=== PATIENT | female | born 1965 | race Caucasian/White ===

== ENCOUNTER → 2017-01-23 | Outpatient (CLI) | payer OTHER ==
[~2017-01-23] MED LIST: B COTAB24 PO; CALCTAB5 PO; CYAN500T13 PO; MULTTAB58 PO
--- NOTE | 2017-01-23 14:44 | DIAGNOSTIC IMAGING REPORT ---
CHEST 2 VIEWS ROUTINE CLINICAL HISTORY: Z01.812 PRE-OP preoperative evaluation COMPARISON STUDY: 11/25/2013 FINDINGS: The bones soft tissues and hemidiaphragms are normal. The cardiomediastinal silhouette is normal. The lungs are clear. The pulmonary vasculature is normal. IMPRESSION: Negative chest. The above report was generated using voice recognition software. It may contain grammatical, syntax or spelling errors. Electronically signed by: Yonatan Trotter M.D. 01/23/2017 2:43 PM Dictated Date/Time: 01/23/2017 2:42 PM
[2017-01-23 15:11] LABS: URINE APPEARANCE CLEAR (CLEAR); URINE BILIRUBIN NEG (NEG); URINE COLOR DK YELLOW; URINE NITRITE NEG (NEG); URINE PH 5.5 (4.5-7.5); URINE SPECIFIC GRAVITY 1.024 (1.000-1.030); UROBILINOGEN NEG (NEG)
[2017-01-23 15:12] LABS: MANUAL MICROSCOPIC REQUIRED? NO; REVIEW REQ? NO
[2017-01-23 15:13] LABS: BASO % 0.5 %; BASO ABS # 0.03 K/uL (0-0.2); EOS % 1.4 %; HEMATOCRIT 38.7 % (37-47); IG% 0.2 %; LYMPH % 35.8 %; LYMPH ABS # 2.24 K/uL (1.2-3.4); MEAN CELL VOLUME 90.8 fL (80-100); MEAN PLATELET VOLUME 9.2 fL (7.4-10.4); MONO % 7.5 %; NEUT % 54.6 %; PLATELET COUNT 271 K/uL (130-400); RED BLOOD COUNT 4.26 M/uL (4.2-5.4); WHITE BLOOD COUNT 6.26 K/uL (4.8-10.8)
[2017-01-23 15:23] LABS: COMPLETE YES; MEAN CORPUSCULAR HGB CONC 34.1 g/dl (32-36)
[2017-01-23 15:29] LABS: BLOOD UREA NITROGEN 19 mg/dl (7-18); CALCIUM 9.7 mg/dl (8.5-10.1); CARBON DIOXIDE 29 mmol/L (21-32); CHLORIDE 104 mmol/L (98-107); CREATININE 0.96 mg/dl (0.60-1.20); GLUCOSE 89 mg/dl (70-99); POTASSIUM 3.7 mmol/L (3.5-5.1); SODIUM 137 mmol/L (136-145)
== END | disposition home or self-care (01) ==
LOC: C.CPL 12:52
PROVIDERS: ATTEND Physician Assistant
DX: Z01.812 Encounter for preprocedural laboratory examination (principal); R94.31 Abnormal electrocardiogram [ECG] [EKG]

== ENCOUNTER 2022-12-23 06:08 | Inpatient (IN) ==
--- NOTE | 2022-12-07 10:48 | PAT Medication Instructions ---
Medication Instructions Date of Service December 07, 2022 Home Medications diclofenac sodium 75 mg tablet,delayed release 75 mg PO BID gabapentin 300 mg capsule 300 mg PO TID vitamin B complex 1 tab PO QAM ASK your surgeon for instructions diclofenac sodium 75 mg tablet,delayed release 75 mg PO BID DO NOT take the morning of surgery vitamin B complex 1 tab PO QAM Take morning of surgery With a small sip of water, OTHERWISE NOTHING TO EAT OR DRINK AFTER MIDNIGHT: gabapentin 300 mg capsule 300 mg PO TID Take evening before surgery gabapentin 300 mg capsule 300 mg PO TID Other Notes If you have any questions please call us at [phone] or [phone] or [phone] or [phone]
--- NOTE | 2022-12-12 11:35 | Anesthesiology Consultation ---
Date of Service December 12, 2022 Assessment & Plan (1) Encounter for pre-operative examination: Infectious disease screening: Per assessment on 12/12/22: No known infectious disease contacts or current infectious disease symptoms. Patient was Covid positive 11/16/22 (tested a [employer]-- employee). Mild cold symptoms at time > resolved. Pt can proceed as scheduled without additional preop Covid testing or additional Covid contact precautions per protocol. Chart Review Chart Review: Acceptable Risk for Surgery and Patient seen in Pre Admission Testing Teaching & Discussion Pre-Anesthesia Teaching/Discussion Notes: Instructed NPO after midnight before surgery,except medications with 15 cc of water. Medication instructions provided according to the PAT guidelines. History Surgery Operation Date: 12/23/22 10:05 Proposed Procedures p L3-L5 Revision Decompression and Fusion, Spinal Cord Monitoring - Smooth Zuluaga DO Height/Weight Height: 5 ft 6 in Weight: 57.3 kg Allergies Allergy/AdvReac Type Severity Reaction Status Date / Time Penicillins Allergy Unknown Throat Verified 12/12/22 11:31 swelling wheat Allergy Unknown GI upset Verified 12/12/22 11:31 Medications Home Medications Medication Instructions Recorded Confirmed Last Taken diclofenac sodium 75 mg 75 mg PO BID 12/05/22 12/05/22 Unknown tablet,delayed release gabapentin 300 mg capsule 300 mg PO TID 12/05/22 12/05/22 Unknown vitamin B complex 1 tab PO QAM 12/05/22 12/05/22 Unknown Past Medical History Medical History Arthritis History of COVID-19 11/16/22 (tested at [employer]- employee)- mild cold symptoms > all resolved Spinal stenosis Exercise / Class Metabolic Activity II 4-5 Yardwork/Stairs/Walk up hill (one FS (no CP, no SOB)) Past Surgical History Surgical History History of lumbar laminectomy 2017 History of tooth extraction Hx of fusion of cervical spine 2012 Past Anesthesia History No Hx of Anesthesia Complications and No Family Hx of Anesthesia Complications History of PONV No Hx of PONV and No Hx of Motion Sickness Social History Smoking Status: Former smoker Do You Dip or Chew Tobacco: No Smoking End Date: Quit 15 years ago Hx Alcohol Use: Yes Alcohol type: wine alcohol intake frequency: 0-2 drinks per day (2 drinks/day) Hx Substance Use: No substance use type: does not use Review of Systems Patient denies chest pain, shortness of breath, dyspnea on exertion, fever, chills, cough, wheezing, palpitations. Physical Exam Vital Signs VITALS BP 145/85 P 76 TEMP 98.1 SP02 98%RA RESP 16 PHYSICAL Decreased cervical extension range of motion. Full TMJ range of motion. TMD 3 finger breaths Mallampati Score 1 Dentition: intact Lungs: clear throughout to auscultation Cardiac: regular rate and rhythm, no murmurs noted Spine: normal Carotid arteries: negative bruit Extremities: no LE edema Lab Results Anesthesia Preop Results Results Anesthesia Widget: WBC 6.97 K/ul (4.8-10.8) 12/12/22 Hgb 11.7 g/dl (12.0-16.0) L 12/12/22 Hct 35.8 % (37.0-47.0) L 12/12/22 Plt 397 K/uL (130-400) 12/12/22 Na 140 mmol/L (136-145) 12/12/22 K 4.0 mmol/L (3.5-5.1) 12/12/22 Cl 104 mmol/L (98-107) 12/12/22 CO2 28 mmol/L (21-32) 12/12/22 BUN 26 mg/dl (6-23) H 12/12/22 Creat 0.77 mg/dl (0.6-1.2) 12/12/22 Glucose Level 95 mg/dl (70-99(Fasting)) 12/12/22 PT 10.7 Seconds (9.0-12.0) 12/12/22 PTT 26.8 Seconds (21.0-31.0) 12/12/22 INR 1.0 (0.9-1.1) 12/12/22 Urine Color Dark Yellow 12/12/22 Urine Appearance Clear (Clear) 12/12/22 Urine pH 6.0 (4.5-7.5) 12/12/22 Urine Specific [place] 1.027 (1.000-1.030) 12/12/22 Urine Protein Negative (Negative) 12/12/22 Urine Glucose (UA) Negative (Negative) 12/12/22 Urine Ketones Trace (Negative) H 12/12/22 Urine Blood Negative (Negative) 12/12/22 Urine Nitrite Negative (Negative) 12/12/22 Urine Bilirubin Negative (Negative) 12/12/22 Urine Urobilinogen Negative (Negative) 12/12/22 Urine Leukocyte Esterase 1+ (Negative) H 12/12/22 Urine WBC (Auto) 1-5 /hpf (0-5) 12/12/22 Urine RBC (Auto) 0-4 /hpf (0-4) 12/12/22 Urine Hyaline Casts (Auto) 1-5 /lpf (0-5) 12/12/22 Urine Epithelial Cells (Auto) 10-20 /lpf (0-5) H 12/12/22 Urine Bacteria (Auto) Negative (Negative) 12/12/22 Blood Type A Positive 12/12/22 Antibody Screen NEGATIVE 12/12/22 Testing Electrocardiogram Date: 12/12/22 NSR at 70bpm. NS STA. Chest X-Ray Date: 12/12/22 FINDINGS: Cardiomediastinal and hilar silhouettes are within normal limits. Partially imaged cervical spinal fusion hardware. No pneumothorax, pleural effusion, airspace consolidation or pulmonary edema. Bones appear grossly intact. IMPRESSION: No acute process.
[~2022-12-23 06:08] MED LIST changes: +ACETAMINOPHEN 500 MG TAB PO SCH; -B COTAB24 PO; -CALCTAB5 PO; +CLINDAMYCIN/D5W 900 MG/50 ML BAG IV SCH; -CYAN500T13 PO; +CeleBREX 200 MG CAP PO SCH; +GABAPENTIN 600 MG DOSE PO SCH; +LR 15ML/HR IV SCH; +LR 60ML/HR IV SCH; -MULTTAB58 PO
[2022-12-23] MEDS ORDERED: ROCURONIUM BROMIDE 10 MG/ML 5 ML VIAL IV ONE ×2 (06:51→08:14)
[2022-12-23] MEDS ORDERED: PROPOFOL IV EMULSION 10 MG/ML 20 ML VIAL IV ONE (06:51)
[2022-12-23] MEDS ORDERED: ONDANSETRON INJ 2 MG/ML 2 ML VIAL ONE (06:51)
[2022-12-23] MEDS ORDERED: GLYCOPYRROLATE 0.2 MG/ML VIAL ONE (06:51)
[2022-12-23] MEDS ORDERED: HYDROmorphone INJ 2 MG/ML SYR/VIAL ONE (06:51)
[2022-12-23] MEDS ORDERED: LIDOCAINE 2% 2 ML VIAL/AMP(20MG/ML) INFIL ONE (06:51)
[2022-12-23] MEDS ORDERED: MIDAZOLAM HCL 1 MG/ML 2ML VIAL ONE (06:51)
[2022-12-23] MEDS ORDERED: DEXAMETHASONE SOD INJ 4 MG/ML VIAL ONE (06:51)
[2022-12-23] MEDS ORDERED: NEOSTIGMINE METHYLSULFATE 1 MG/ML 10ML VIAL ONE (06:51)
[2022-12-23] MEDS ORDERED: ePHEDrine sulfate 50 MG/ML AMP IV PRN (07:09)
[2022-12-23] MEDS ORDERED: PROMETHAZINE HCL 6.25 MG in SODIUM CHLORIDE 0.9% 50 ML IV PRN (07:09)
[2022-12-23] MEDS ORDERED: ONDANSETRON INJ 2 MG/ML 2 ML VIAL IV PRN ×2 (07:09→12:06)
[2022-12-23] MEDS ORDERED: ATROPINE SULFATE 0.1 MG/ML 10ML SYR IV PRN (07:09)
--- NOTE | 2022-12-23 07:39 | History & Physical Bridge Note ---
Date of Service December 23, 2022 History & Physical Bridge Note I have examined the patient, reviewed the History & Physical and in the interval since the performance of the History & Physical I have noted the following changes of clinical significance: no changes noted
--- NOTE | 2022-12-23 07:40 | History & Physical Report ---
Date of Service December 23, 2022 Assessment & Plan (1) Neurogenic claudication due to lumbar spinal stenosis: Plan: L3-L5 revision decompression and fusion History of Present Illness Chief Complaint: Back and leg pain Primary Care Provider: KLEBER Baez This is a subsequent course of nonoperative care she is here for surgical invention. Allergies Allergy/AdvReac Type Severity Reaction Status Date / Time Penicillins Allergy Unknown Throat Verified 12/23/22 06:27 swelling wheat Allergy Unknown GI upset Verified 12/23/22 06:27 Home Medications Medication Instructions Recorded Confirmed Type diclofenac sodium 75 mg 75 mg PO BID 12/05/22 12/23/22 History tablet,delayed release gabapentin 300 mg capsule 300 mg PO TID 12/05/22 12/23/22 History vitamin B complex 1 tab PO QAM 12/05/22 12/23/22 History Past Med/Surg History Medical History Arthritis History of COVID-19 11/16/22 (tested at [facility]- employee)- mild cold symptoms > all resolved Spinal stenosis Surgical History History of lumbar laminectomy 2017 History of tooth extraction Hx of fusion of cervical spine 2013 Social History Smoking Status: Former smoker Smoking End Date: Quit 15 years ago; Second Hand Exposure: No; Do You Dip or Chew Tobacco: No; Tobacco Cessation Education Requested by Patient: No Hx Alcohol Use: Yes Alcohol type: wine Hx Substance Use: No Preferred Language: Bahamian Communication Ability: Effective Transfer And Pumphouse Operator Required: No Beliefs That Will Affect Care: None Current Living Situation: Spouse Other Information That Helps Us Care for You: No Feels Safe at Home: Yes Safety Concerns: Feels Safe At This Time Assistive Devices: None Physical Exam Physical Exam: Patient is alert and oriented Heart regular rhythm Lungs clear Results & Data Results & Data Vital Signs (Past 12 Hours) Vital Signs Temp Pulse Resp BP Pulse Ox O2 Del Method 12/23/22 06:52 36.9 C 80 20 142/96 H 100 Room Air
[2022-12-23] MEDS ORDERED: ceFAZolin 330 MG/ML 1 GM VIAL ONE (07:41)
[2022-12-23] MEDS ORDERED: BUPIVACAINE/EPINEPHRINE 0.25% 1:200,000 30 ML VIAL ONE (07:41)
[2022-12-23] MEDS ORDERED: FLOSEAL HEMOSTATIC MATRIX 10ML TOP ONE (09:56)
--- NOTE | 2022-12-23 10:05 | Operative Report ---
Post Operative Report Pre & Post Diagnosis Operation Date: 12/23/22 07:45 Pre-Op Diagnosis: Lumbar spinal stenosis with radiculopathy Post-Op Diagnosis: Same I identified the patient and participated in the time-out.: Yes Procedure Operation Date: 12/23/22 07:45 Actual Procedures #1 revision decompression bilaterally facetectomies and foraminotomies L3-L4 L4- 5. #2 posterior spinal fusion L3-L4 L4-5 per #3 placed posterior instrumentation L3-L5. #4 interbody fusion L3-L4 L4-5. #5 placement spiral 14 x 26 mm at L3-L4 and 13 x 26 mm at L4-5. #6 placement locally harvested morselized autograft posterior gutters per #7 placement of I factor in the interbody space and infuse collagen sponge combined with V toss in the posterior gutters. Surgeon Smooth Zuluaga DO Airplane Patrol Pilot Vin Lara Estimated Blood Loss 100 Findings Consistent with Post-Op Diagnosis Specimens None Indications This is a 57-year-old female who presents above-mentioned diagnosis of the failing course of nonoperative care is here for surgical invention. Description of Procedure Patient met with identified informed consent obtained. Patient was then taken to the operative suite underwent patient placed in a prone position to check stable topicals and frame. All bony promises well-padded I suspected to ensure no external pressure placed upon them. This point the lumbar spine was prepped draped in a sterile fashion. Sharp dissection with the assistance pericardial from down to and exposing the remaining lamina and transverse processes of L3 L4-5 bilaterally. From a calcified fashion revision complete laminectomy of L4 and L3 was performed including bilaterally facetectomies and foraminotomies addressing all spinal stenosis. Pedicle screws in place L3 L4-5 bilaterally with assistance of fluoroscopy but with size kirk placed. Bilateral transforaminal approach and right complete discectomy of L4-5 was performed endplates guarded to subcortical and bone and a 13 x 26 mm Spira cage with I factor tapped in position. Then proceeded to L3-L4 by way of transforaminal approach in the right complete discectomy performed endplates guarded to subcortical bleeding bone and a 14 x 26 mm Spira cage with I factor tapped in position. The rods were then compressed locked in final position bilaterally. The transverse processes of L3 L4-5 burred to subcortical bleeding bone. Infuse collagen sponge, the testing locally harvested morselized Placed in the posterior gutters. 15 round DON inserted. The incision was then closed with 1 Vicryl to fascia 2-0 Vicryl subcutaneously and 4 Monocryl for final skin closure. Steri-Strips sterile dressings placed. Patient waken taken to PACU in stable condition. Please note spinal cord monitoring was utilized at the procedure no changes noted. Lastly Vin Lara was present at the entire surgery involved the patient positioning complex portion of the surgery and final skin closure. I attest to the content of the Intraoperative Record and any orders documented therein. Any exceptions are noted below.
[2022-12-23] MEDS: fentaNYL citrate PF 100 MCG/2 ML VIAL IV PRN ×3 (10:34→10:49)
--- NOTE | 2022-12-23 10:56 | Fluoroscopy Report ---
[place] lumbar spine 2-3V CLINICAL HISTORY: L3-L5 REVISION DECOMPESSION AND FUSION COMPARISON STUDY: Lumbar spine MRI November 25, 2013. FLUOROSCOPY TIME: 21 seconds. Ka, r: 9.04 mGy FLUOROSCOPIC IMAGES: 2 FINDINGS: Fluoroscopy was provided during revision L3-5 posterior decompression and pedicle screw fus ion. L3-L4 and L4-L5 interbody spacers are present. Hardware is intact. There are no unexpected radio paque foreign bodies. IMPRESSION: Fluoroscopy provided during revision L3-5 posterior decompression and pedicle screw fusi on. ACT 112: Negative or not required by law. Electronically signed by: Issac Blanco M.D. 12/23/2022 10:55 AM
[2022-12-23] MEDS: HYDROmorphone INJ 2 MG/ML SYR/VIAL IV PRN ×2 (11:20→11:28)
[2022-12-23] MEDS ORDERED: hydrOXYzine HCl 25 MG TAB PO PRN (12:06)
[2022-12-23] MEDS ORDERED: DO NOT ADMINISTER FLU VACCINE PRN (12:06)
[2022-12-23] MEDS ORDERED: DO NOT ADMINISTER PNEUMOCOCCAL VACCINE PRN (12:06)
[2022-12-23] MEDS ORDERED: ALUMINUM/MAGNESIUM SUSP 30 ML UDC PO PRN (12:06)
[2022-12-23] MEDS ORDERED: FAMOTIDINE 20 MG TAB PO PRN (12:06)
[2022-12-23] MEDS ORDERED: NALOXONE HCL 0.4 MG/1 ML VIAL/CARP IV PRN (12:06)
[2022-12-23] MEDS ORDERED: ACETAMINOPHEN 500 MG TAB PO PRN (12:06)
[2022-12-23] MEDS ORDERED: PROMETHAZINE HCL 12.5 MG in SODIUM CHLORIDE 0.9% 50 ML IV PRN (12:06)
[2022-12-23] MEDS ORDERED: METOCLOPRAMIDE HCL INJ 5 MG/ML 2 ML VIAL IV PRN (12:06)
[2022-12-23] MEDS ORDERED: LORazepam 2 MG/1 ML VIAL IV PRN (12:06)
[2022-12-23] MEDS ORDERED: ACETAMINOPHEN 1,000 MG/100 ML VIAL IV PRN (12:06)
[2022-12-23] MEDS ORDERED: LORazepam 0.5 MG TAB PO PRN (12:06)
[2022-12-23] MEDS ORDERED: MAGNESIUM HYDROXIDE SUSP 30 ML UDC PO PRN (12:06)
[2022-12-23] MEDS ORDERED: HYDROmorphone INJ 0.5 MG/0.5 ML SYR IV PRN (12:06)
[2022-12-23] MEDS ORDERED: bisacodyL 10 MG SUPP PR PRN (12:06)
[2022-12-23] MEDS ORDERED: SOD PHOSPHATE/SOD BIPHOSPHATE ENEMA 132 ML BTL PR PRN (12:06)
[2022-12-23] MEDS ORDERED: diphenhydrAMINE Capsule 25 MG CAP PO PRN (12:06)
[2022-12-23] MEDS ORDERED: ONDANSETRON 4 MG OD TAB PO PRN (12:06)
[2022-12-23] MEDS: LACTATED RINGER'S 1,000 ML IV SCH ×2 (12:39→22:31)
--- NOTE | 2022-12-23 13:00 | Anesthesiology Progress Note ---
Date of Service December 23, 2022 Anesthesia Post Procedure Vital Signs Vital Signs: Temp Pulse Pulse Resp BP Pulse Ox O2 Del Method 12/23/22 12:34 36.3 C L 64 15 107/68 98 Room Air 12/23/22 11:45 67 20 104/83 100 Nasal Cannula 12/23/22 11:30 69 20 118/80 100 Nasal Cannula 12/23/22 11:15 76 21 123/70 100 Nasal Cannula 12/23/22 11:00 36.5 C 72 20 127/75 100 Nasal Cannula 12/23/22 10:50 78 17 128/77 100 Nasal Cannula 12/23/22 10:40 84 13 130/78 100 Oxymask 12/23/22 10:30 92 H 18 118/87 100 Oxymask 12/23/22 10:24 36.9 C 78 18 118/63 100 Oxymask 12/23/22 06:52 36.9 C 80 20 142/96 H 100 Room Air O2 Flow Rate 12/23/22 12:34 12/23/22 11:45 2 12/23/22 11:30 2 12/23/22 11:15 2 12/23/22 11:00 2 12/23/22 10:50 2 12/23/22 10:40 4 12/23/22 10:30 6 12/23/22 10:24 6 12/23/22 06:52 Pain Intensity Back: Pain Intensity: 5 Transfer of Care Handoff Completed per policy Notes Mental Status: alert / awake / arousable Patient Amnestic to Procedure: Yes Nausea / Vomiting: adequately controlled Pain: adequately controlled Airway Patency, RR, SpO2: stable & adequate BP & HR: stable & adequate Hydration State: stable & adequate Anesthetic Complications: no major complications apparent
[2022-12-23] MEDS: GABAPENTIN 300 MG CAP PO SCH ×2 (14:30→21:55)
[2022-12-23] MEDS: oxyCODONE HCL IR 5 MG TAB (IMMEDIATE RELEASE) PO PRN (17:40)
[2022-12-23] MEDS: CLINDAMYCIN/D5W 600 MG/50 ML BAG IV SCH (17:41)
[2022-12-23] MEDS: HYDROmorphone INJ 1 MG/ML SYRINGE IV PRN ×2 (18:48→22:34)
[2022-12-23] MEDS: DOCUSATE SODIUM/SENNA 50/8.6MG TAB PO SCH (21:55)
[2022-12-24] MEDS: CLINDAMYCIN/D5W 600 MG/50 ML BAG IV SCH (01:00)
[2022-12-24] MEDS: HYDROmorphone INJ 1 MG/ML SYRINGE IV PRN ×4 (03:43→20:44)
[2022-12-24] MEDS: POLYETHYLENE (MIRALAX) 17 GM PACK PO SCH ×4 (05:57→23:12)
[2022-12-24] MEDS: oxyCODONE HCL IR 5 MG TAB (IMMEDIATE RELEASE) PO PRN ×2 (06:01→11:35)
[2022-12-24 06:35] LABS: Basophils # (auto) 0.04 K/uL (0.00-0.20); Basophils % (auto) 0.4 %; Eosinophils # (auto) 0.05 K/uL (0.00-0.50); Eosinophils % (auto) 0.5 %; Hematocrit (blood only) 29.9 % (37.0-47.0); Hemoglobin 9.7 g/dl (12.0-16.0); Immature Granulocytes # (auto) 0.03 K/uL (0.01-0.20); Immature Granulocytes % (auto) 0.3 %; Lymphocytes # (auto) 1.86 K/uL (1.20-3.40); Lymphocytes % (auto) 19.2 %; Mean Corpuscular Hemoglobin 29.7 pg (25.0-34.0); Mean Corpuscular Hgb Conc 32.4 g/dL (32.0-36.0); Mean Corpuscular Volume 91.4 fL (80.0-100.0); Mean Platelet Volume 8.4 fL (9.4-12.4); Monocytes # (auto) 0.67 K/uL (0.11-0.59); Monocytes % (auto) 6.9 %; Neutrophils # (auto) 7.02 K/uL (1.40-6.50); Neutrophils % (auto) 72.7 %; Platelet Count 320 K/uL (130-400); RDW Coefficient of Variation 14.7 % (11.5-14.5); RDW Standard Deviation 49.2 fL (36.4-46.3); Red Blood Count 3.27 M/uL (4.20-5.40); White Blood Count 9.67 K/ul (4.8-10.8)
[2022-12-24 07:19] LABS: BUN Creatinine Ratio 20.3 (10-20); Calcium 9.1 mg/dl (8.6-10.3); Creatinine Clr Calc Pharmacy 77.5 ml/min; Est GFR (African American) 110.4 ml/min; Est GFR (Non-African American) 95.3 ml/min
[2022-12-24] MEDS: GABAPENTIN 300 MG CAP PO SCH ×3 (08:17→20:45)
[2022-12-24] MEDS: VITAMIN B COMPLEX TAB PO SCH (08:17)
[2022-12-24] MEDS: dexAMETHasone 6 MG in SYRINGE 0 ML IV SCH (08:18)
--- NOTE | 2022-12-24 11:33 | Orthopedic Progress Note ---
Date of Service December 24, 2022 Assessment & Plan (1) Neurogenic claudication due to lumbar spinal stenosis: Plan: This time continue physical therapy monitor DON output anticipate discharge home Monday. Admission and Anticipated Discharge Date Admission Date: December 23, 2022 Subjective Back pain controlled leg pain improved patient has been walking the halls. Physical Exam Physical Exam: Patient is in the chair at bedside. He is comfortable. Is consented testing. Results & Data Vital Signs (Past 12 Hours) Vital Signs Temp Pulse Resp BP Pulse Ox O2 Del Method 12/24/22 10:56 36.8 C 69 15 113/76 95 Room Air 12/24/22 07:31 36.7 C 71 15 122/71 98 Room Air 12/24/22 03:30 37.2 C 75 16 113/62 98 Room Air Queries Orthopedic Spine Acute Posthemorrhagic Anemia: Yes
[2022-12-24] MEDS: traMADol HCL 50 MG TABLET PO PRN (12:51)
[2022-12-24] MEDS: DOCUSATE SODIUM/SENNA 50/8.6MG TAB PO SCH (20:45)
[2022-12-25] MEDS: HYDROmorphone INJ 1 MG/ML SYRINGE IV PRN (04:33)
[2022-12-25] MEDS: POLYETHYLENE (MIRALAX) 17 GM PACK PO SCH ×3 (06:20→16:58)
[2022-12-25] MEDS: oxyCODONE HCL IR 5 MG TAB (IMMEDIATE RELEASE) PO PRN ×3 (08:22→20:40)
[2022-12-25] MEDS: GABAPENTIN 300 MG CAP PO SCH ×3 (08:23→20:33)
[2022-12-25] MEDS: VITAMIN B COMPLEX TAB PO SCH (08:23)
[2022-12-25] MEDS: dexAMETHasone 6 MG in SYRINGE 0 ML IV SCH (08:23)
[2022-12-25] MEDS: traMADol HCL 50 MG TABLET PO PRN ×2 (10:16→16:57)
--- NOTE | 2022-12-25 11:23 | Orthopedic Progress Note ---
Date of Service December 25, 2022 Assessment & Plan (1) Neurogenic claudication due to lumbar spinal stenosis: Plan: This time continue physical therapy monitor DON output anticipate discharge home tomorrow. Admission and Anticipated Discharge Date Admission Date: December 23, 2022 Subjective Back pain controlled leg pain improved Physical Exam Physical Exam: Patient is up and ambulating halls. She is comfortable. Results & Data Vital Signs (Past 12 Hours) Vital Signs Temp Pulse Resp BP Pulse Ox O2 Del Method 12/25/22 07:43 36.4 C L 81 15 119/81 96 Room Air Queries Orthopedic Spine Acute Posthemorrhagic Anemia: Yes
[2022-12-25] MEDS: DOCUSATE SODIUM/SENNA 50/8.6MG TAB PO SCH (20:33)
[2022-12-26] MEDS: oxyCODONE HCL IR 5 MG TAB (IMMEDIATE RELEASE) PO PRN ×3 (01:08→12:45)
[2022-12-26] MEDS: GABAPENTIN 300 MG CAP PO SCH (09:32)
[2022-12-26] MEDS: dexAMETHasone 6 MG in SYRINGE 0 ML IV SCH (09:32)
[2022-12-26] MEDS: VITAMIN B COMPLEX TAB PO SCH (09:33)
[2022-12-26] MEDS: traMADol HCL 50 MG TABLET PO PRN (09:37)
--- NOTE | 2022-12-26 10:02 | Discharge Summary ---
Date of Service December 26, 2022 Admission HPI Per Admitting Provider This is a subsequent course of nonoperative care she is here for surgical invention. Principal Diagnosis Lumbar spinal stenosis with neurogenic claudication Discharge Data Allergies Allergy/AdvReac Type Severity Reaction Status Date / Time Penicillins Allergy Unknown Throat Verified 12/23/22 06:27 swelling wheat Allergy Unknown GI upset Verified 12/23/22 06:27 Procedures Performed Operation Date: 12/23/22 07:45 Actual Procedures p L3-L5 Revision Decompression and Fusion, Spinal Cord Monitoring(Not Applicable) - Smooth Zuluaga DO Ordered Studies 12/23/22 07:45 [place] lumbar spine 2-3V Routine Hospital Course (1) Neurogenic claudication due to lumbar spinal stenosis: Patient underwent revision decompression fusion tolerated this well was taken to orthopedic for postoperative. Postoperatively she was up and ambulating with marked improvement in leg pain. Her DON drain decreased probably. Extra strength testing. Pain well controlled. Simply discharged home. Discharge orders instructions from the chart for further review. Total Time Total Time Spent Total Time Spent (In Minutes): 20 minutes Discharge Plan Discharge Items Patient Disposition: Home - Self-Care Reason For Visit: POSTOP Discharge Diagnosis: Lumbar spinal stenosis with neurogenic claudication Activity: As commented below Non-emergency contact: Primary Care Provider Call non-emergency contact if: you have any medication questions Follow-up/Referrals: Sissy Padilla CRNP [Primary Care Provider] - Diet: Regular Addtl Attending Provider Instructions: ACTIVITY RECOMMENDATIONS: SELF CARE INSTRUCTIONS AFTER THORACIC/LUMBAR FUSIONS 1. You may walk to your tolerance. It is good exercise for your legs and back. Expect some back and intermittent leg aches and pains. 2. You may perform "counter-top" level activities (make a sandwich, bhargav with a project, etc.). 3. No bending or lifting of more than 10 pounds or back twisting of any nature (roll like a log when turning in bed). 4. You may ride in a car for 20-30 minutes at a time. No driving until after your first visit with your doctor. 5. Frequent changes of position and restricting sitting to 30 minutes at a time will help limit the amount of back spasms and stiffness you may experience. 6. You may discontinue the use of ambulatory aids (cane, crutches, etc.) once your strength and confidence allow. 7. You may jig boring machine operator for metal the shower and let water strike your incision when you arrive home at least once daily. Do not take a tub bath, sit in a hot tub or go into a swimming pool until after your first recheck in the office. SPECIAL CARE INSTRUCTIONS: VERY IMPORTANT TO READ AND REVIEW A. Your surgical incision has been closed with a cosmetic suture under the skin that will dissolve in about 6 weeks. In 14 days, you can use a pair of clean scissors and cut the suture that is left outside of the skin at the ends of your incision. 1. The small skin tapes can be removed 7 days after surgery if they have not fallen off by that point. 2. You may keep the wound open to air as much as possible to promote healing after post-op day number 5 unless told otherwise by your doctor. 3. If you think the wound looks like it is becoming infected (redness or worsening drainage) and/or you are experiencing fever, chill or worsening back pain and muscle spasms, contact the office so that we may evaluate you as soon as possible. B. Complications are uncommon, but please contact us if you have any signs or symptoms of: 1. wound infection (fever higher than 102.5 degrees F, redness, separation of wound, drainage, or increasing pain from the incision) 2. blood clots in legs (pain, swelling, redness and warmth in legs) 3. urinary tract infection (fever higher than 102.5 degrees F, burning upon urination or increased frequency of urination) 4. nerve problems (inability to walk on your toes or heels, numbness, loss of bowel or bladder control) 5. any other symptoms that concern you C. Please call the office at if you have any concerns or questions about your operation or recovery. D. No smoking! Smoking drastically decreases the chance of a solid fusion. E. Do not take any anti-inflammatory medications (Indocin, Advil, Motrin, Aspirin, Naprosyn, etc.) as these may inhibit the chance of a solid fusion. Tyl enol is okay to take for pain. MANAGING PAIN AFTER SPINAL SURGERY 1. Narcotic medication is intended for short-term use and will be provided for surgical pain. Surgical pain usually lasts for a period of 4-6 weeks. Narcotic medication includes Percocet, Vicodin, Darvocet, Tylenol #3 or Lortab. 2. Longer-term pain is more appropriately treated with non-narcotic medication such as Tylenol ES. 3. Muscle spasm is not appropriately treated with narcotics. Muscle relaxers such as Soma, Flexeril or Skelaxin can be used along with Tylenol ES. 4. Remember that we all live with some "aches and pains". This is not unusual or uncommon after an injury or as we get older. a. Back pain is expected and may include muscle spasms for 4 to 6 weeks after surgery. The pain should gradually improve. If the pain worsens for no apparent reason, please contact the office. b. Intermittent leg pain may also be experienced and should not be concerned about unless it worsens for no apparent reason. If so, please contact the office. 5. We will provide appropriate medication within the normal guidelines of their prescribed use. We will also be very cautious and aware of potential abuse and extended duration of patients' medication needs. a. Pain medications are for your comfort and to assist with sleep and rest so that the tissue can heal. They are not provided in order to return to normal activity and should not be used through the day. To do so or worsening pain at night can result from ongoing tissue damage and development of tolerance to the prescribed medicine. 6. Please allow 2-3 days to process refills. Prescriptions will not be mailed but must be picked up at the office. FOLLOW UP VISIT: Keep your scheduled follow-up appointment. Any questions, please call the office at . Pending Studies at Discharge: No Stand-Alone Forms: My [facility], Smoking Cessation Medications and DC Order Prescriptions: New tramadol 50 mg tablet 50 mg PO Q6H PRN (Reason: pain, moderate) Qty: 30 0RF oxycodone 5 mg tablet 5 mg PO Q6H PRN (Reason: pain) Qty: 30 0RF Continued gabapentin 300 mg Capsule 300 mg PO TID vitamin B complex Tablet 1 tab PO QAM Discontinued diclofenac sodium 75 mg Tablet,Delayed Release (Dr/Ec) 75 mg PO BID Discharge Orders: Discharge Order (Routine); Ordered 12/26/22 Ordered By: Smooth Zuluaga Admission Data Admit Date/Time: 12/23/22 10:08 Attending Provider: Smooth Zuluaga Admit Provider: Smooth Zuluaga Primary Care Provider: Sissy Padilla
== END 2022-12-26 13:17 | disposition home or self-care (01) | DRG 455 ==
LOC: ASU 06:08 → 3E 10:08